=== PATIENT | male | born 1950 | race Caucasian/White ===

== ENCOUNTER 2018-02-10 08:32 | Outpatient (CLI) | payer MEDICARE, OTHER ==
[2018-02-10 09:38] LABS: Estimated GFR-MDRD - POC Greater than 90
--- NOTE | 2018-02-10 12:00 | CT ---
CT ABDOMEN AND PELVIS PERFORMED WITH INTRAVENOUS CONTRAST ENHANCEMENT: HISTORY: The patient has prostate cancer, now with an elevated PSA. COMPARISON: 01/04/2011 FINDINGS: ABDOMEN: The lung bases show some interstitial changes, which appear to be chronic in nature. Some subpleural atelectasis is noted. No pulmonary nodules are identified. There is suggestion of some possible fatty change to the liver. The spleen is somewhat elongated in appearance and measures 13.7 cm in length. The pancreas shows no mass or ductal dilatation. The gal lbladder has been removed. The right and left adrenal glands have a slightly hyperplastic appearance, with a slight nodular appe arance to the left adrenal gland, but this is stable. The right and left kidneys are normal in size. There are hypodensities involving the upper and lower poles of the right kidney, both of which have increased in size, as compared to the prior examination. The upper pole lesion is 17 mm in size, an d the lower pole lesion is 5.5 cm in size, as compared to less than 1 cm and 3.7 cm on the prior exam ; however, both of these have CT Hounsfield unit numbers that are compatible with cysts. There are n o renal calculi or any suspicious solid mass. There is no significant periaortic or aortocaval lymphadenopathy. No mesenteric adenopathy. I do no t appreciate any adenopathy in the portal region or in the gastrohepatic ligament area. PELVIS: The appendix is normal. I do not see any significant pelvic lymphadenopathy. All the nodes are subcentimeter in size. No deep pelvic lymphadenopathy noted. No interval change since the prev ious exam. Small inguinal nodes are present, which are stable. Prostate calcification is noted. Review of the osseous structures show some arthritic changes of the spine and hips. No lytic or jimmie tic bony change. IMPRESSION: 1. Right renal cyst and also a tiny, subcentimeter hyperdensity in the upper pole of the left kidney , probably also a small cyst. 2. No evidence of any significant abdominal or pelvic adenopathy or evidence for metastatic disease. POS: TPC
--- NOTE | 2018-02-10 14:37 | NM ---
WHOLE BODY BONE SCAN: INDICATIONS: Malignant neoplasm of prostate. COMPARISON: Reference made to 11/20/2015. RADIOPHARMACEUTICAL: Technetium 99m MDP 32 millicuries IV. FINDINGS: There is stable mild degenerative activity of the axial and appendicular skeleton. There is no new s cintigraphic focus to indicate osseous metastatic disease. Physiologic excretion of radiotracer is n oted within the kidneys and bladder. IMPRESSION: No scintigraphic evidence of osseous metastatic disease. POS: TPC
[2018-02-10] MEDS ORDERED: Iopamidol 370 76% 100 ML VIAL ONE (16:15)
== END 2018-02-10 08:33 | disposition home or self-care (01) ==
LOC: CT 08:32
PROVIDERS: ATTEND Radiology Radiation Oncology
DX: C61 Malignant neoplasm of prostate (principal); R97.21 Rising PSA following treatment for malignant neoplasm of prostate; N28.1 Cyst of kidney, acquired
CPT/HCPCS: 74177; 78306; 82565; A9503

== ENCOUNTER 2019-09-03 12:54 | Inpatient (IN) | payer MEDICARE, OTHER ==
[2019-09-03] MEDS ORDERED: Ondansetron PF 4 MG/2 ML Vial ONE ×2 (14:00→15:20)
[2019-09-03 14:25] LABS: Hemoglobin 17.9 g/dL (14.0-18.0); Mean Corpuscular HGB CONC 35.7 g/dL (32.0-36.0); Mean Corpuscular Hemoglobin 31.6 pg (27.0-31.0); Mean Corpuscular Volume 88.6 fL (78.0-98.0); Mean Platelet Volume 6.8 fL (7.4-10.4); Platelet Count 328 thou/uL (130-400); RBC Distribution Width 12.5 % (11.5-14.5); Red Blood Cell (RBC) Count 5.65 mill/uL (4.70-6.10); White Blood Cell (WBC) Count 22.1 thou/uL (4.8-10.8)
--- NOTE | 2019-09-03 14:25 | RAD ---
EXAM: Single view of the chest HISTORY: Nausea and headache COMPARISON: 06/26/2010 FINDINGS: Single view of the chest shows a normal sized cardiomediastinal silhouette. There is no francisco dence of consolidation, mass, or pleural effusion. Degenerative changes are seen in the spine. IMPRESSION: No evidence of acute cardiopulmonary disease
[2019-09-03 14:38] LABS: ALT (SGPT) 15 U/L (8-55); AST (SGOT) 14 U/L (5-34); Albumin 4.1 g/dL (3.4-4.8); Alkaline Phosphatase 85 U/L (40-110); Anion Gap 16 mmol/L (10-20); BUN (Urea Nitrogen) 16 mg/dL (8.4-25.7); Bilirubin, Total 0.9 mg/dL (0.2-1.2); Calc. Creatinine Clearance 0 mL/min (70-130); Carbon Dioxide 22 mmol/L (23-31); Chloride 101 mmol/L (98-107); Estimated GFR-MDRD 40; Globulin 2.9 g/dL (2.4-3.5); Glucose 168 mg/dL (80-115); Potassium 3.2 mmol/L (3.5-5.1); Sodium 136 mmol/L (136-145)
[2019-09-03 14:48] LABS: Band 25 % (5-11); Lymphocytes 3 % (21-51); MDiff Complete? YES; Monocytes 5 % (0-10); Neutrophil 59 % (42-75); Platelet Morphology Comment Appears Adequate; Polychromasia SLIGHT = 2-3 cells (100X) (0-2/hpf); Reactive Lymphocytes 8 % (0-10)
[2019-09-03] MEDS ORDERED: Ondansetron ODT 4 MG TAB ONE (15:17)
[2019-09-03] MEDS ORDERED: Vancomycin 1 GM/200 ML BAG ONE (15:17)
[2019-09-03] MEDS ORDERED: Cefepime 2 GM VIAL ONE ×2 (15:17→15:20)
[2019-09-03] MEDS ORDERED: Sodium Chloride 0.9% 100 ML ONE (15:20)
[2019-09-03] MEDS ORDERED: Potassium Chloride 20 MEQ TAB ONE ×2 (15:39→15:42)
[2019-09-03 18:00] LABS: Bacteria/HPF None Seen HPF (None Seen); Bilirubin Negative (Negative); Blood, Urine 2+ (Negative); Clarity Turbid (Clear); Glucose, Urine (Dipstick) Normal (Negative); Leukocyte 250 Leu/uL (Negative); Nitrite Negative (Negative); Protein, Urine (Dipstick) 70 mg/dL (Neg-Trace); Squamous Epithelial 0-3 HPF (0-3); Urobilinogen Normal mg/dL (Less than 2); WBC/HPF 21-50 HPF (0-3)
[2019-09-03 18:31] LABS: Lactic Acid 2.6 mmol/L (0.5-2.2)
[2019-09-03] MEDS ORDERED: cefTRIAXone\\ROCEPHIN 1 GM VIAL ONE ×2 (18:54→20:47)
[2019-09-03] MEDS ORDERED: cefTRIAXone\\ROCEPHIN 2 GM VIAL ONE (19:09)
--- NOTE | 2019-09-03 20:26 | PDOC.HHP ---
Hospitalist HPI - History of Present Illness weakness, chills, sweats since the morning History of Present Illness: Patient is poor historian. H&P based on ED report and patient. 68yo M w/ MHx of prostate cancer (currently on chemo) heart stent on Plavix, hypertension, T2DM, hyperlipidemia, cholecystectomy presents to the ED for weakness. The patient has been feeling weak since the morning, associated with nausea, sweats, and chills so came to the ED on encounter, laying comfortably in bed and has no complaints. denies headache, neck stiffness, chest pain, pleuritic pain, sob, abdominal pain, diarhea, dysuria, burning on urination, urinary frequency, sick contacts or travel ED Course: In the ED, hypotensive, given 3L NS and started on antibiotics. UA showed pyruia with leukocyte esterase. Was admitted to the medical floor for further management Hospitalist ROS - Review of Systems Constitutional: reports: chills, sweats, weakness, malaise. denies: fever Eyes: denies: pain, vision change, eyelid inflammation, redness ENT: denies: nose pain, nose discharge, nose congestion, mouth pain, mouth swelling, throat pain, throat swelling Respiratory: denies: cough, shortness of breath, hemoptysis, SOB with excertion Cardiovascular: denies: chest pain, palpitations, orthopnea, paroxysmal noc. dyspnea, edema Gastrointestinal: reports: nausea, constipation. denies: vomiting, abdominal pain, diarrhea Genitourinary: denies: dysuria, frequency, hematuria Musculoskeletal: reports: shoulder pain. denies: neck pain, arm pain, back pain Neurological: reports: weakness. denies: incoordination, change in speech, confusion Hospitalist History - Past Medical History Source: patient, old records Cardiac: reports: CAD, HTN Heme/Onc: reports: Cancer (prostate) - Past Surgical History Other Surgical History: lung surgery - Family History Family History: reports: diabetes mellitus, hypertension - Social History Smoking Status: Current every day smoker Tobacco Type: cigarettes Alcohol: reports: None Drugs: reports: none Living Situation: With Family Activity level: independent ambulation - Exam General Appearance: NAD, awake alert Eye: PERRL, anicteric sclera Neck: no JVD Heart: RRR, no murmur, no gallops, no rubs Respiratory: CTAB, no wheezes, no rales Respiratory - other findings: diffuse rhonchi Gastrointestinal: soft, non-tender, non-distended, normal bowel sounds Gastrointestinal - other findings: no urethral discharge Extremities: no edema Psychiatric: normal affect, normal behavior, A&O x 3 Hospitalist Results - Labs Result Diagrams: 09/03/19 14:07 09/03/19 14:07 Lab results: WBC 22.1 thou/uL (4.8-10.8) H 09/03/19 14:07 Hgb 17.9 g/dL (14.0-18.0) 09/03/19 14:07 Hct 50.0 % (42.0-52.0) 09/03/19 14:07 MCV 88.6 fL (78.0-98.0) 09/03/19 14:07 Plt Count 328 thou/uL (130-400) 09/03/19 14:07 Band Neuts % (Manual) 25 % (5-11) H 09/03/19 14:07 Sodium 136 mmol/L (136-145) 09/03/19 14:07 Potassium 3.2 mmol/L (3.5-5.1) L 09/03/19 14:07 Chloride 101 mmol/L (98-107) 09/03/19 14:07 Carbon Dioxide 22 mmol/L (23-31) L 09/03/19 14:07 BUN 16 mg/dL (8.4-25.7) 09/03/19 14:07 Creatinine 1.70 mg/dL (0.7-1.3) H 09/03/19 14:07 Glucose 168 mg/dL (80-115) H 09/03/19 14:07 Lactic Acid 2.6 mmol/L (0.5-2.2) H 09/03/19 18:05 Calcium 9.0 mg/dL (7.8-10.44) 09/03/19 14:07 Total Bilirubin 0.9 mg/dL (0.2-1.2) 09/03/19 14:07 AST 14 U/L (5-34) 09/03/19 14:07 ALT 15 U/L (8-55) 09/03/19 14:07 Alkaline Phosphatase 85 U/L (40-110) 09/03/19 14:07 Troponin I 0.019 ng/mL (< 0.028) 09/03/19 14:07 Serum Total Protein 7.0 g/dL (5.8-8.1) 09/03/19 14:07 Albumin 4.1 g/dL (3.4-4.8) 09/03/19 14:07 Urine Ketones Negative mg/dL (Negative) 09/03/19 17:39 Urine Blood 2+ (Negative) A 09/03/19 17:39 Urine Nitrite Negative (Negative) 09/03/19 17:39 Ur Leukocyte Esterase 250 Klever/uL (Negative) A 09/03/19 17:39 Urine RBC 11-20 HPF (0-3) A 09/03/19 17:39 Urine WBC 21-50 HPF (0-3) A 09/03/19 17:39 Ur Squamous Epith Cells 0-3 HPF (0-3) 09/03/19 17:39 Urine Bacteria None Seen HPF (None Seen) 09/03/19 17:39 - Radiology Interpretation Chest x-ray Status: report reviewed by me Additional Comment: no acute cardiopulmonary process Hospitalist H&P A/P - Problem (1) Urinary tract infection Status: Acute (2) Acute tubular necrosis Code(s): N17.0 - ACUTE KIDNEY FAILURE WITH TUBULAR NECROSIS Status: Acute (3) Hypertension Code(s): I10 - ESSENTIAL (PRIMARY) HYPERTENSION Status: Acute (4) Prostate cancer Code(s): C61 - MALIGNANT NEOPLASM OF PROSTATE Status: Acute (5) Type 2 diabetes mellitus Status: Acute (6) Presence of stent in coronary artery in patient with coronary artery disease Code(s): I25.10 - ATHSCL HEART DISEASE OF [place] CORONARY ARTERY W/O ANG PCTRS; Z95.5 - PRESENCE OF CORONARY ANGIOPLASTY IMPLANT AND GRAFT Status: Acute - Plan Plan: #weakness #sepsis #complicated UTI #ATN -qSOFA 2/3 on presentation -active sediment;no symptoms c/w UTI, wbc and rbc, leukoesterase may be due to ATN; however, leuokocytosis with bandemia -also may be related to chemotherapy; medication reconciliation pending -EKG showing occasional PVC -start ceftriaxone -FeNA -IVF #SELAM/CKD -no recent records of renal function -active urine sediment - may be related to chemo -FeNa #T2DM -insulin regimen based on weight #CAD s/p stent -per patient, stent placede about 10 years ago; last seen by special service representative months ago who wanted him to continue use plavix -pending medication reconciliation Disposition/PPx full code. is surrogate GI PPx: not indicated DVT PPx: lovenox
[2019-09-03] MEDS ORDERED: Acetaminophen 325 MG TAB PO PRN ×2 (21:54→22:02)
[2019-09-03] MEDS ORDERED: Ondansetron PF 4 MG/2 ML Vial IVP PRN ×2 (21:54→22:02)
[2019-09-03] MEDS ORDERED: Ondansetron ODT 4 MG TAB SL PRN (21:54)
[2019-09-03 21:58] VITALS: BMI 32.5
[2019-09-03] MEDS ORDERED: Dextrose 50% Abboject 50 ML SYRINGE SLOW IVP PRN (22:02)
[2019-09-03] MEDS ORDERED: Dextrose 5% in Water 1,000 ML IV PRN (22:02)
[2019-09-03] MEDS ORDERED: HYDROcodone/Acetaminophen 5/325 mg Tablet PO PRN (22:02)
[2019-09-03] MEDS ORDERED: HumaLOG 300 UNITS/3 ML VIAL SC PRN (22:02)
[2019-09-03] MEDS ORDERED: Bisacodyl 5 MG TAB PO SCH (22:02)
[2019-09-03] MEDS ORDERED: Ondansetron ODT 4 MG TAB PO PRN (22:02)
[2019-09-03] MEDS ORDERED: Insulin Glargine 10 UNITS in Pre-Filled Syringe 1 EACH SC SCH (22:30)
[2019-09-03] MEDS: Sodium Chloride 0.9% 1,000 ML IV SCH ×2 (23:25→23:57)
[2019-09-04 00:28] LABS: Calc. Creatinine Clearance 87 mL/min (70-130); Estimated GFR-MDRD 58; Sodium 136 mmol/L (136-145)
[2019-09-04 02:22] LABS: Creatinine, Urine 170.41 mg/dL (63-166)
[2019-09-04 06:13] LABS: Eosinophils 3 % (0-10); Hypochromia SLIGHT = 6-15 cells (100X) (0-5/hpf); Lymphocytes 10 % (21-51); MDiff Complete? YES; Mean Corpuscular HGB CONC 36.3 g/dL (32.0-36.0); Mean Corpuscular Hemoglobin 32.2 pg (27.0-31.0); Mean Corpuscular Volume 88.7 fL (78.0-98.0); Mean Platelet Volume 6.9 fL (7.4-10.4); Monocytes 5 % (0-10); Neutrophil 82 % (42-75); Platelet Count 243 thou/uL (130-400); Platelet Morphology Comment Appears Adequate; RBC Distribution Width 12.2 % (11.5-14.5); Red Blood Cell (RBC) Count 4.04 mill/uL (4.70-6.10); White Blood Cell (WBC) Count 10.6 thou/uL (4.8-10.8)
[2019-09-04 06:18] LABS: Anion Gap 9 mmol/L (10-20); BUN (Urea Nitrogen) 13 mg/dL (8.4-25.7); Calc. Creatinine Clearance 114 mL/min (70-130); Calcium 7.9 mg/dL (7.8-10.44); Carbon Dioxide 26 mmol/L (23-31); Chloride 106 mmol/L (98-107); Estimated GFR-MDRD 80; Glucose 111 mg/dL (80-115); Potassium 3.2 mmol/L (3.5-5.1); Sodium 138 mmol/L (136-145)
[2019-09-04] MEDS: Sodium Chloride 0.9% 1,000 ML IV SCH ×3 (07:57→19:17)
[2019-09-04] MEDS: Enoxaparin Sodium 40 MG/0.4 ML SYRINGE SC SCH (09:02)
[2019-09-04] MEDS: Senokot S 8.6-50 MG TAB PO SCH ×2 (09:02→20:55)
[2019-09-04] MEDS: Potassium Chloride 20 MEQ TAB PO SCH ×2 (12:14→16:17)
--- NOTE | 2019-09-04 15:22 | PDOC.HOSPP ---
- Subjective Encounter Date: 09/04/19 Encounter Time: 09:00 Subjective: no overnight events. this morning feeling better and more energetic. has no complaints and denies chest pain, palpitations, dyspnea - Objective Vital Signs & Weight: Vital Signs (12 hours) Temp Pulse Resp BP BP Pulse Ox 09/04/19 12:16 97.8 F 53 L 15 124/61 93 L 09/04/19 09:05 58 L 18 93 L 09/04/19 09:00 93 L 09/04/19 07:45 98.7 F 58 L 18 106/67 91 L 09/04/19 04:00 98.7 F 65 20 108/68 95 Weight Weight 240 lb I&O: 09/03/19 09/04/19 09/05/19 06:59 06:59 06:59 Intake Total 1450 Output Total 800 Balance 1450 -800 Result Diagrams: 09/04/19 05:18 09/04/19 05:18 Additional Labs: Accuchecks 09/04/19 09/04/19 11:46 04:42 POC Glucose 142 H 129 H Hospitalist ROS - Review of Systems Constitutional: denies: fever, chills, sweats, weakness, malaise, other Respiratory: denies: cough, dry, shortness of breath, hemoptysis, SOB with excertion, pleuritic pain, sputum, wheezing, other Cardiovascular: denies: chest pain, palpitations, orthopnea, paroxysmal noc. dyspnea, edema, light headedness, other Gastrointestinal: denies: nausea, vomiting, abdominal pain, diarrhea, constipation, melena, hematochezia, other Genitourinary: denies: dysuria, frequency, incontinence, hematuria, retention, other - Medication Medications: Active Medications Generic Name Dose Route Start Last Admin Trade Name Freq PRN Reason Stop Dose Admin Enoxaparin Sodium 40 mg 09/04/19 09:00 09/04/19 09:02 Lovenox SC 40 mg 0900 DESTINY Administration Sodium Chloride 1,000 mls @ 100 mls/hr 09/03/19 22:02 09/04/19 09:03 Normal Saline 0.9% IV 1,000 mls .Q10H DESTINY Administration Potassium Chloride 40 meq 09/04/19 11:45 09/04/19 12:14 K-Dur PO 09/04/19 15:46 40 meq Q4H DESTINY Administration Senna/Docusate Sodium 2 tab 09/04/19 09:00 09/04/19 09:02 Senokot S PO 2 tab BID DESTINY Administration - Exam General Appearance: NAD, awake alert Neck: no JVD Heart: no murmur, no gallops, no rubs Heart - other findings: regular rhythm, bradycardic Gastrointestinal: soft, non-tender, non-distended Extremities: no edema Psychiatric: normal affect, normal behavior, A&O x 3 Hosp A/P (1) Urinary tract infection Status: Acute (2) Acute tubular necrosis Code(s): N17.0 - ACUTE KIDNEY FAILURE WITH TUBULAR NECROSIS Status: Acute (3) Hypertension Code(s): I10 - ESSENTIAL (PRIMARY) HYPERTENSION Status: Acute (4) Prostate cancer Code(s): C61 - MALIGNANT NEOPLASM OF PROSTATE Status: Acute (5) Type 2 diabetes mellitus Status: Acute (6) Presence of stent in coronary artery in patient with coronary artery disease Code(s): I25.10 - ATHSCL HEART DISEASE OF [place] CORONARY ARTERY W/O ANG PCTRS; Z95.5 - PRESENCE OF CORONARY ANGIOPLASTY IMPLANT AND GRAFT Status: Acute - Plan #UTI continue ABx pending culture #SELAM resolved #bradycardia #hypotensive on presentation -uncertain hypotension related to sepsis -EKG, Trop Full code. is surrogate DVT ppx lovenox GI ppx no Ix
[2019-09-04] MEDS ORDERED: Bisacodyl 5 MG TAB PO SCH (15:30)
[2019-09-04] MEDS ORDERED: Clopidogrel Bisulfate 75 MG TAB PO SCH (15:30)
[2019-09-04] MEDS ORDERED: cefTRIAXone\\ROCEPHIN 1 GM in Sodium Chloride 0.9% 100 ML IVPB SCH (18:00)
[2019-09-04] MEDS: Insulin Glargine 10 UNITS in Pre-Filled Syringe 1 EACH SC SCH ×2 (20:55→21:01)
[2019-09-05] MEDS: Sodium Chloride 0.9% 1,000 ML IV SCH ×3 (05:56→12:53)
[2019-09-05 06:58] LABS: #Eosinphils 0.7 thou/uL (0.0-0.7); #Lymphocytes 1.7 thou/uL (1.20-3.40); #Monocytes 0.6 thou/uL (0.11-0.59); #Neutrophils 5.6 thou/uL (1.40-6.50); %Basophils 0.6 % (0.0-1.0); %Eosinophils 7.6 % (0.0-10.0); %Lymphocytes 19.4 % (21.0-51.0); %Monocytes 6.5 % (0.0-10.0); %Neutrophils 65.9 % (42.0-75.0); Hemoglobin 12.3 g/dL (14.0-18.0); Mean Corpuscular HGB CONC 35.4 g/dL (32.0-36.0); Mean Corpuscular Hemoglobin 31.7 pg (27.0-31.0); Mean Corpuscular Volume 89.5 fL (78.0-98.0); Platelet Count 217 thou/uL (130-400); RBC Distribution Width 12.4 % (11.5-14.5); Red Blood Cell (RBC) Count 3.89 mill/uL (4.70-6.10); White Blood Cell (WBC) Count 8.6 thou/uL (4.8-10.8)
[2019-09-05 07:19] LABS: Potassium 3.7 mmol/L (3.5-5.1)
[2019-09-05] MEDS ORDERED: Bisacodyl 5 MG TAB PO SCH (09:00)
[2019-09-05] MEDS ORDERED: Bicalutamide 50 MG TAB PO SCH (09:00)
[2019-09-05] MEDS ORDERED: Clopidogrel Bisulfate 75 MG TAB PO SCH (09:00)
[2019-09-05] MEDS: Enoxaparin Sodium 40 MG/0.4 ML SYRINGE SC SCH (09:06)
[2019-09-05] MEDS: Senokot S 8.6-50 MG TAB PO SCH (09:06)
--- NOTE | 2019-09-05 13:25 | PDOC.HOSPP ---
- Subjective Encounter Date: 09/05/19 Encounter Time: 08:00 Subjective: Patient presented with hypotension, thought to be due to UTI however no symptoms and UCx NTD. During inpatient stay, converted from sinus to asymptomatic junctional rhythm. EP consulted. This morning, feels well and has no complaints. Denies fatigue, chest pain, palpitations, dyspnea - Objective Vital Signs & Weight: Vital Signs (12 hours) Temp Pulse Resp BP BP Pulse Ox 09/05/19 11:30 98.4 F 50 L 16 127/67 93 L 09/05/19 07:37 98.1 F 51 L 19 149/72 H 94 L 09/05/19 03:43 98.3 F 54 L 18 140/73 94 L Weight Weight 240 lb I&O: 09/04/19 09/05/19 09/06/19 06:59 06:59 06:59 Intake Total 1450 3920 Output Total 2150 Balance 1450 1770 Result Diagrams: 09/05/19 06:30 09/05/19 06:30 Additional Labs: Accuchecks 09/05/19 09/04/19 09/04/19 11:42 20:06 16:37 POC Glucose 187 H 155 H 113 H Hospitalist ROS - Review of Systems Constitutional: denies: fever, chills, sweats, weakness, malaise, other Respiratory: denies: cough, dry, shortness of breath, hemoptysis, SOB with excertion, pleuritic pain, sputum, wheezing, other Cardiovascular: denies: chest pain, palpitations, orthopnea, paroxysmal noc. dyspnea, edema, light headedness, other Gastrointestinal: denies: nausea, vomiting, abdominal pain, diarrhea, constipation, melena, hematochezia, other Genitourinary: denies: dysuria, frequency, incontinence, hematuria, retention, other - Medication Medications: Active Medications Generic Name Dose Route Start Last Admin Trade Name Freq PRN Reason Stop Dose Admin Bicalutamide 50 mg 09/05/19 09:00 09/05/19 09:06 Casodex PO 50 mg DAILY DESTINY Administration Bisacodyl 10 mg 09/05/19 09:00 09/05/19 09:06 Dulcolax PO 10 mg DAILY DESTINY Administration Clopidogrel Bisulfate 75 mg 09/05/19 09:00 09/05/19 09:06 Plavix PO 75 mg DAILY DESTINY Administration Enoxaparin Sodium 40 mg 09/04/19 09:00 09/05/19 09:06 Lovenox SC 40 mg 0900 DESTINY Administration Ceftriaxone Sodium 1 gm/ 100 mls @ 200 mls/hr 09/04/19 18:00 09/04/19 17:35 Sodium Chloride IVPB 100 mls 1800 DESTINY Administration Insulin Glargine 10 units/ 0.1 mls @ 0 mls/hr 09/04/19 21:00 09/04/19 21:01 Miscellaneous Medication SC Not Given HS DESTINY Sodium Chloride 1,000 mls @ 100 mls/hr 09/03/19 22:02 09/05/19 12:53 Normal Saline 0.9% IV Not Given .Q10H DESTINY Insulin Human Lispro 0 units 09/03/19 22:02 09/05/19 12:16 Humalog SC 2 unit .MILD SLIDING SCALE PRN Administration Mild Correctional Scale Ondansetron HCl 4 mg 09/03/19 22:02 09/05/19 09:05 Zofran Odt PO 4 mg Q6H PRN Administration Nausea/Vomiting Senna/Docusate Sodium 2 tab 09/04/19 09:00 09/05/19 09:06 Senokot S PO 2 tab BID DESTINY Administration - Exam General Appearance: NAD, awake alert Neck: no JVD Heart: no murmur, no gallops, no rubs Heart - other findings: regular rhythm, bradycardic Respiratory: CTAB, no wheezes, no rales, no ronchi Gastrointestinal: soft, non-tender, non-distended Extremities: no edema Psychiatric: normal affect, normal behavior, A&O x 3 Hosp A/P (1) Urinary tract infection Status: Acute (2) Acute tubular necrosis Code(s): N17.0 - ACUTE KIDNEY FAILURE WITH TUBULAR NECROSIS Status: Acute (3) Hypertension Code(s): I10 - ESSENTIAL (PRIMARY) HYPERTENSION Status: Acute (4) Prostate cancer Code(s): C61 - MALIGNANT NEOPLASM OF PROSTATE Status: Acute (5) Type 2 diabetes mellitus Status: Acute (6) Presence of stent in coronary artery in patient with coronary artery disease Code(s): I25.10 - ATHSCL HEART DISEASE OF [place] CORONARY ARTERY W/O ANG PCTRS; Z95.5 - PRESENCE OF CORONARY ANGIOPLASTY IMPLANT AND GRAFT Status: Acute - Plan #junctional rhythm #CAD s/p stent placement -sinus on presentation; as inpatient, became bradycardic, junctional rhythm on EKG -on androgen deprivation therapy, which cause qt prolongation and CAD -repeat EKG, troponin -EP consulted -continue holding coreg #complicated UTI UCx NTD continue ABx pending culture finalization #SELAM resolved Full code. is surrogate DVT ppx lovenox GI ppx no Ix
[2019-09-05 17:15] VITALS: BP 150/74; TEMP 98.6
[2019-09-05 17:34] LABS: Troponin I 0.012 ng/mL (< 0.028)
--- NOTE | 2019-09-05 19:20 | PQF ---
DATE: 09-05-19 ATTN: DR. FAITH STRONG Please exercise your independent, professional judgment in responding to the clarification form. Clinical indicators are provided on the bottom of this form for your review Please check appropriate box(s) to clarify if the following diagnosis has been ruled in or ruled out: SEPSIS [ ] Ruled in diagnosis [ ] Continue to treat [ ] Resolved [ x ] Ruled out diagnosis [ ] Other diagnosis [ ] Unable to determine In addition, please specify: Present on Admission (POA): [ ] Yes [ x ] No [ ] Unable to determine For continuity of documentation, please document condition throughout progress notes and discharge summary. Thank You. CLINICAL INDICATORS - SIGNS / SYMPTOMS / LABS / RESULTS AND LOCATION IN MR: ER DX: 09-03-19: SEPSIS , UTI H&P 09-03-19: WEAKNESS, SEPSIS, COMPLICATED UTI, ATN, LEUKOCYTOSIS WITH BANDEMIA, SELAM/CKD, DM2 PN DR. STRONG 09-04-19: UNCERTAIN HYPOTENSION RELATED TO SEPSIS WBC: 09-03-19: 22.1 BANDS: 09-03-19: 25% LACTIC ACID: 09-03-19: 2.2, 2.6 RISK FACTORS / RESULTS AND LOCATION IN MR: H&P 09-03-19: WEAKNESS, SEPSIS, COMPLICATED UTI, ATN, LEUKOCYTOSIS WITH BANDEMIA, SELAM/CKD, DM2 TREATMENTS / RESULTS AND LOCATION IN MR: ER NOTES: 09-03-19: CEFTRIAXONE IV, NS IVF X 3L, VANCOMYCIN IV, CEFEPIME IV (This form is maintained as a part of the permanent medical record) 2014 [employer]. All Rights Reserved [email or web address]
[2019-09-05] MEDS ORDERED: Atorvastatin Calcium 20 MG TAB PO SCH ×2 (21:00)
--- NOTE | 2019-09-06 01:04 | DIS ---
DATE OF ADMISSION: 09/03/2019 DATE OF DISCHARGE: 09/05/2019 HOSPITAL COURSE: Mr. Barbosa is a 68-year-old male with medical history of prostate cancer (currently on androgen deprivation therapy), coronary artery disease status post stent placement, on Plavix, hypertension, type 2 diabetes, and cholecystectomy, who presented to the ED for weakness. The patient was initially diagnosed with urinary tract infection even though he did not exhibit signs consistent with an infection due to a positive urinalysis, however, after culture was finalized and was negative, antibiotics were discontinued. During his inpatient stay, he converted from sinus rhythm to a junctional rhythm. Electrophysiology was consulted, and the patient received heart monitor. Followup appointment was scheduled with the patient's leadite man Dr. Pace. On the day of discharge, the patient was hemodynamically stable and had no complaints. PHYSICAL EXAMINATION: VITAL SIGNS: Blood pressure 127/67, temperature 98.4, pulse 50, respiratory rate 16, oxygen saturation 93% on room air. GENERAL: Lying comfortably in bed. Alert. HEENT: Normocephalic, atraumatic. No JVD. CARDIAC: Regular rhythm, bradycardic. No murmur, rubs, or gallops. LUNGS: Clear to auscultation bilaterally. No wheezing, rales, or rhonchi. EXTREMITIES: No edema. MEDICATION LIST: New medications: No new medications. Modified medications: No modified medications. Continued medications: 1. Atorvastatin 20 daily. 2. Bicalutamide 50 mg daily. 3. Amlodipine 10 daily. 4. Coreg 6.25 b.i.d. 5. Clopidogrel 75 daily. 6. Prinzide 20-25 daily. 7. Metformin 500 b.i.d. Job ID: [id number]
--- NOTE | 2019-09-06 06:43 | CON ---
DATE OF CONSULTATION: 09/05/2019 HISTORY OF PRESENT ILLNESS: I am seeing Mr. 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 His problems are; 1. Episode of junctional bradycardia in the setting of nausea. 2. Hypotension with associated near syncopal spell in the setting of severe UTI. 3. History of coronary artery disease status post stenting by Dr. Pace about 10 years ago, on Plavix. 4. [id number] kidney disease with current BUN 13, creatinine 0.94, initially 1.7. 5. History of prostate cancer. 6. Type 2 diabetes. ALLERGIES: NONE NOTED. MEDICATIONS: At home included; 1. Casodex. 2. Glucophage. 3. Prinzide. 4. Coreg 6.25 mg twice a day. 5. Lipitor. 6. Norvasc. 7. Clopidogrel. SUBJECTIVE: Mr. Barbosa was admitted on the with symptoms of dizziness, lightheadedness, near syncope, weakness, is found to have severe nausea and vomiting, but denies dysuria. His lowest blood pressure was 90/55. EKG is performed in the ER revealing bradycardia at 51 beats per minute. There appears to be junctional rhythm competing with his sinus mechanism in the setting of nausea. Subsequent EKG on the reveals sinus bradycardia at 45 beats per minute. I was subsequently consulted to evaluate the patient. Currently, the patient denies dizziness, loss of consciousness. No stroke-like symptoms. No neurological deficits. No fever, chills, cough. No PND or orthopnea. He has been receiving antibiotics and he has no burning urination and his nausea is resolved. Respiratory system otherwise unremarkable. PAST MEDICAL HISTORY: As above. The patient has a history of sleep apnea on CPAP. Currently, he is not wearing his CPAP in the hospital. SOCIAL HISTORY: The patient is a daily smoker. Denies EtOH or drug abuse. Lives with family. FAMILY HISTORY: Significant for diabetes and hypertension running in the family. PHYSICAL EXAMINATION: VITAL SIGNS: Blood pressure currently is 127/67, heart rate 50, respirations 16, and temperature 98.4 degrees Fahrenheit. GENERAL: Alert and oriented man, in no apparent distress. NECK: Supple. Jugular veins not distended. CHEST: Coarse without crackles. HEART: Sounds are regular to rate and rhythm. No murmur or gallop. ABDOMEN: Benign. Bowel sounds positive. EXTREMITIES: Lower extremities without edema, clubbing, or cyanosis. DATABASE: EKGs as described above. Initial EKG from September 03, 2019, reveals sinus rhythm, rate of 78 beats per minute. Occasional PVCs are noted. Subsequent EKG from September 04, 2019, reveals sinus bradycardia with junctional beat competing with the sinus mechanism in the setting of nausea. On the , reveals sinus rhythm, rate of 45 beats per minute, no significant changes. LABORATORY DATA: Sodium 138, potassium 3.2, BUN is 13, creatinine was 0.94 on the , calcium 7.9, troponin 0.01. White cell count is 8.6, hemoglobin is 12.3, platelet count is 217. Blood cultures and urine cultures are negative x2 days. ASSESSMENT AND PLAN: Mr. Barbosa is a 68-year-old man with prior history of prostate cancer, sleep apnea, remote history of stent placement. Dr. Pace still follows the patient. He is presented with UTI and nausea, but now he is doing much better on antibiotics. Cultures so far negative. He was noted to have bradyarrhythmia at night in the 40s while asleep, but he does have a history of sleep apnea and currently not wearing his sleep mask. On the other hand, he also has asymptomatic bradycardia in the 45 beats per minute range documented by an EKG today. He had an EKG with a junctional rhythm, completely sinus rhythm about 51 beats per minute. This gentleman has clearly slower heartbeats and he is not currently on any AV fred or sinus node blocking agents. On the other hand, he has had significant nausea and vomiting like symptoms possibly since his urinary sepsis, which could worsen his bradycardia. Now, his mild bradycardia persists but remains asymptomatic currently. He had borderline blood pressures on presentation, which have normalized. At this point, I do not clearly see indication for pacemaker. Hence, likely cause of his mild bradycardia. I am more suspicious about the hypotension being the main factor for his dizzy spell. On the other hand, he could benefit from home monitoring and likely this could be arranged with Dr. Pace, his usual safety equipment testing specialist's office. Should he have symptomatic bradycardia on the monitor, he may be considered for pacemaker as an outpatient. We will discuss with Dr. Zafar and Dr. Pace. Thank you again for allowing me to participate in the care of this patient. Job ID: [id number]
--- NOTE | 2019-09-06 17:40 | EKG ---
Test Reason : Blood Pressure : / mmHG Vent. Rate : 051 BPM Atrial Rate : 051 BPM P-R Int : 000 ms QRS Dur : 092 ms QT Int : 426 ms P-R-T Axes : 000 036 012 degrees QTc Int : 392 ms Junctional rhythm Abnormal ECG When compared with ECG of 03-JAN-2011 22:41, Junctional rhythm has replaced Sinus rhythm Confirmed by DR. Ever KAHN ([id number]) on 09/06/2019 5:40:09 PM Referred By: TAE Confirmed By:DR. Ever KAHN
--- NOTE | 2019-09-07 08:32 | EKG ---
Test Reason : Blood Pressure : / mmHG Vent. Rate : 045 BPM Atrial Rate : 045 BPM P-R Int : 176 ms QRS Dur : 094 ms QT Int : 452 ms P-R-T Axes : 067 047 019 degrees QTc Int : 390 ms Marked sinus bradycardia with sinus arrhythmia Abnormal ECG When compared with ECG of 04-SEP-2019 16:09, (Unconfirmed) Sinus rhythm has replaced Junctional rhythm Confirmed by DR. Ever KAHN ([id number]) on 09/07/2019 8:31:54 AM Referred By: TAE Confirmed By:DR. Ever KAHN
== END 2019-09-05 17:20 | disposition home or self-care (01) | DRG 689 ==
LOC: ERS 12:54 → T4-A 19:15
PROVIDERS: ADMIT Internal Medicine; ATTEND Internal Medicine
DX: N39.0 Urinary tract infection, site not specified (principal); N17.0 Acute kidney failure with tubular necrosis; E78.5 Hyperlipidemia, unspecified; C61 Malignant neoplasm of prostate; F17.210 Nicotine dependence, cigarettes, uncomplicated; E11.22 Type 2 diabetes mellitus with diabetic chronic kidney disease; I12.9 Hypertensive chronic kidney disease with stage 1 through stage 4 chronic kidney disease, or unspecified chronic kidney disease; N18.9 Chronic kidney disease, unspecified; I25.10 Atherosclerotic heart disease of native coronary artery without angina pectoris; Z90.49 Acquired absence of other specified parts of digestive tract; Z79.01 Long term (current) use of anticoagulants; Z95.5 Presence of coronary angioplasty implant and graft; Z79.84 Long term (current) use of oral hypoglycemic drugs; Z79.899 Other long term (current) drug therapy
CPT/HCPCS: 36415; 36416; 71045; 80053; 81003; 81015; 82570; 83605; 84132; 84300; 84484; 85007; 85025; 85027; 87040; 87086; 93005; 93010; J0692; J0696; J1650; J1815; J2405; J3370; J3490; Q0162

== ENCOUNTER 2020-01-02 12:14 | Outpatient (CLI) | payer MEDICARE, OTHER ==
--- NOTE | 2020-01-02 12:36 | RAD ---
EXAM: Chest PA and lateral: HISTORY: Dyspnea COMPARISON: 09/03/2019 FINDINGS: Heart: Normal cardiac silhouette Aorta: Unremarkable Pulmonary vessels: Normal Costophrenic angles: Costophrenic angles are clear. Lungs: No consolidation or masses. Scattered reticulonodular opacities. Pneumothorax: No pneumothorax Osseous structures: Remote posterior left sixth rib injury. IMPRESSION: Correlate for edema or infiltrate. There are scattered reticulonodular opacities.
== END 2020-01-02 12:15 | disposition home or self-care (01) ==
LOC: BICRAD 12:14
PROVIDERS: ATTEND Internal Medicine Critical Care Medicine
DX: R06.00 Dyspnea, unspecified (principal); R91.8 Other nonspecific abnormal finding of lung field
CPT/HCPCS: 71046

== ENCOUNTER 2020-09-08 14:26 | Outpatient (CLI) | payer MEDICARE, OTHER ==
[2020-09-08 17:33] LABS: Anion Gap 19 mmol/L (10-20); BUN (Urea Nitrogen) 12 mg/dL (8.4-25.7); Calc. Creatinine Clearance 0 mL/min (70-130); Calcium 9.1 mg/dL (7.8-10.44); Carbon Dioxide 23 mmol/L (23-31); Chloride 99 mmol/L (98-107); Glucose 239 mg/dL (80-115); Potassium 4.4 mmol/L (3.5-5.1); Sodium 137 mmol/L (136-145)
[2020-09-08 17:53] LABS: Prothrombin Time 10.9 sec (9.5-12.1)
[2020-09-08 17:54] LABS: Hemoglobin 13.3 g/dL (13.5-17.5); Mean Corpuscular HGB CONC 34.2 g/dL (32.0-36.0); Mean Corpuscular Hemoglobin 30.7 pg (27.0-33.0); Mean Corpuscular Volume 89.8 fl (81.2-95.1); Mean Platelet Volume 9.8 fl (7.4-10.4); Platelet Count 267 10x3/uL (150-450); Red Blood Cell (RBC) Count 4.33 10x6/uL (4.32-5.72); White Blood Cell (WBC) Count 9.5 10x3/uL (3.5-10.5)
[2020-09-09 16:59] LABS: SARS-CoV-2 PCR by NAA Not Detected (NotDetected)
== END 2020-09-08 14:27 | disposition home or self-care (01) ==
LOC: LABBT 14:26
PROVIDERS: ATTEND Internal Medicine Cardiovascular Disease
DX: Z01.812 Encounter for preprocedural laboratory examination (principal); I47.2 Ventricular tachycardia; I47.1 Supraventricular tachycardia; R55 Syncope and collapse; Z20.822 Contact with and (suspected) exposure to COVID-19
CPT/HCPCS: 80048; 85027; 85610; U0003; U0005

== ENCOUNTER 2020-09-11 05:34 | Observation (INO) | payer MEDICARE, OTHER ==
[2020-09-10 10:17] VITALS: BMI 31.8
[2020-09-11] MEDS ORDERED: Lidocaine 1% (PF) 30 ML VIAL ONE ×2 (06:42→08:56)
[2020-09-11] MEDS ORDERED: Gentamicin 80 MG/2 ML VIAL ONE (06:42)
[2020-09-11] MEDS ORDERED: CEFAZOLIN 1 GM VIAL ONE (06:42)
[2020-09-11] MEDS ORDERED: Heparin 10,000 UNITS/ 10 ML VIAL ONE (06:43)
[2020-09-11] MEDS ORDERED: Fentanyl 100 MCG/2 ML VIAL ONE (07:09)
[2020-09-11] MEDS ORDERED: Propofol 1,000 MG/100 ML VIAL IV ONE ×2 (07:09→08:55)
[2020-09-11] MEDS ORDERED: Isoproterenol 0.2 MG/1 ML AMP ONE (08:10)
[2020-09-11] MEDS ORDERED: Vancomycin 1.5 GRAM/300 ML BAG 1.5 GM in Premix Bag 1 BAG IVPB SCH (08:45)
[2020-09-11] MEDS ORDERED: HYDROcodone/Acetaminophen 5/325 mg Tablet PO PRN ×2 (13:45)
[2020-09-11] MEDS ORDERED: Loratadine 10 MG TAB PO SCH (13:45)
[2020-09-11] MEDS: metFORMIN 500 MG TAB PO SCH (18:07)
[2020-09-11] MEDS: Amlodipine 5 MG TAB PO SCH (20:52)
[2020-09-11] MEDS ORDERED: Bicalutamide 50 MG TAB PO SCH (21:00)
[2020-09-11] MEDS ORDERED: Fish Oil 1,000 MG CAP PO SCH (21:00)
[2020-09-11] MEDS ORDERED: Atorvastatin Calcium 40 MG TAB PO SCH (21:00)
[2020-09-11] MEDS ORDERED: Tamsulosin HCl 0.4 MG CAP PO SCH (21:00)
[2020-09-11] MEDS ORDERED: Escitalopram Oxalate 10 mg Tablet PO SCH (21:00)
[2020-09-12 08:10] VITALS: BP 147/72; TEMP 98.4
[2020-09-12] MEDS ORDERED: Lisinopril/Hydrochlorothiazide 20 mg/12.5 mg Tablet PO SCH (09:00)
[2020-09-12] MEDS ORDERED: Ergocalciferol 1.25 MG(50,000 UNITS) CAP PO SCH (09:00)
[2020-09-12] MEDS ORDERED: Aspirin 81 mg Enteric Coated Tablet PO SCH (09:00)
[2020-09-12] MEDS: metFORMIN 500 MG TAB PO SCH (10:00)
[2020-09-12] MEDS: Amlodipine 5 MG TAB PO SCH (10:01)
== END 2020-09-12 12:33 | disposition home or self-care (01) ==
LOC: CCL 05:34 → 2SW 12:37
PROVIDERS: ADMIT Internal Medicine Cardiovascular Disease; ATTEND Internal Medicine Cardiovascular Disease
PROC: 4A023FZ Measurement of Cardiac Rhythm, Percutaneous Approach (ICD-10-PCS; principal; 2020-09-11)
PROC: 4A0234Z Measurement of Cardiac Electrical Activity, Percutaneous Approach (ICD-10-PCS; 2020-09-11)
PROC: 0JH606Z Insertion of Pacemaker, Dual Chamber into Chest Subcutaneous Tissue and Fascia, Open Approach (ICD-10-PCS; 2020-09-11)
PROC: 02H63JZ Insertion of Pacemaker Lead into Right Atrium, Percutaneous Approach (ICD-10-PCS; 2020-09-11)
PROC: 02HK3JZ Insertion of Pacemaker Lead into Right Ventricle, Percutaneous Approach (ICD-10-PCS; 2020-09-11)
DX: I49.5 Sick sinus syndrome (principal); R00.1 Bradycardia, unspecified; R55 Syncope and collapse; I47.1 Supraventricular tachycardia; I47.2 Ventricular tachycardia; I49.8 Other specified cardiac arrhythmias; I25.10 Atherosclerotic heart disease of native coronary artery without angina pectoris; I10 Essential (primary) hypertension; E78.5 Hyperlipidemia, unspecified; E11.9 Type 2 diabetes mellitus without complications; G47.33 Obstructive sleep apnea (adult) (pediatric); I45.10 Unspecified right bundle-branch block; Z85.46 Personal history of malignant neoplasm of prostate; Z87.891 Personal history of nicotine dependence; Z79.02 Long term (current) use of antithrombotics/antiplatelets; Z79.82 Long term (current) use of aspirin; Z79.84 Long term (current) use of oral hypoglycemic drugs; Z79.899 Other long term (current) drug therapy; Z95.5 Presence of coronary angioplasty implant and graft
CPT/HCPCS: 33208; 71045; 76942; 82962; 93005 ×2; 93613; 93621; 93623; C1730; C1785; C1898 ×2; 36416; 93010; G0378; J0690; J1580; J1644; J2001; J2704; J3010; J3370

== ENCOUNTER 2021-07-06 09:12 | Outpatient (CLI) | payer MEDICARE | END 2021-07-06 09:13 | disposition home or self-care (01) | LOC: BICCT 09:12 | PROVIDERS: ATTEND Internal Medicine Cardiovascular Disease | DX: I65.22 Occlusion and stenosis of left carotid artery (principal) | CPT/HCPCS: 70498; 82565 ==

== ENCOUNTER 2021-11-10 20:10 | Emergency (ER) | payer MEDICARE, OTHER ==
[2021-11-10] MEDS ORDERED: Ondansetron PF 4 MG/2 ML Vial ONE (20:34)
[2021-11-10 21:50] LABS: #Basophils 0.1 thou/uL (0.0-0.2); #Eosinphils 0.3 thou/uL (0.0-0.7); #Lymphocytes 0.6 thou/uL (1.20-3.40); #Monocytes 0.7 thou/uL (0.11-0.59); #Neutrophils 7.7 thou/uL (1.40-6.50); %Basophils 0.5 % (0.0-1.0); %Eosinophils 3.5 % (0.0-10.0); %Lymphocytes 6.3 % (21.0-51.0); %Monocytes 7.8 % (0.0-10.0); %Neutrophils 81.9 % (42.0-75.0); Hemoglobin 12.8 g/dL (14.0-18.0); Mean Corpuscular Hemoglobin 31.3 pg (27.0-31.0); Mean Corpuscular Volume 89.5 fL (78.0-98.0); Mean Platelet Volume 6.5 fL (7.4-10.4); Platelet Count 219 thou/uL (130-400); RBC Distribution Width 12.1 % (11.5-14.5); Red Blood Cell (RBC) Count 4.07 mill/uL (4.70-6.10); White Blood Cell (WBC) Count 9.5 thou/uL (4.8-10.8)
[2021-11-10 22:11] LABS: ALT (SGPT) 11 U/L (8-55); AST (SGOT) 9 U/L (5-34); Albumin 3.9 g/dL (3.4-4.8); Alkaline Phosphatase 100 U/L (40-110); Anion Gap 15 mmol/L (10-20); BUN (Urea Nitrogen) 10 mg/dL (8.4-25.7); Calc. Creatinine Clearance 0 mL/min (70-130); Calcium 8.3 mg/dL (7.8-10.44); Carbon Dioxide 24 mmol/L (23-31); Chloride 102 mmol/L (98-107); Estimated GFR 80; Globulin 2.7 g/dL (2.4-3.5); Glucose 171 mg/dL (83-110); Lipase 56 U/L (8-78); Potassium 4.1 mmol/L (3.5-5.1); Protein, Total 6.6 g/dL (5.8-8.1); Sodium 137 mmol/L (136-145)
== END 2021-11-10 23:15 | disposition home or self-care (01) ==
LOC: ERS 20:10
DX: R11.2 Nausea with vomiting, unspecified (principal); R05.9 Cough, unspecified; Z20.822 Contact with and (suspected) exposure to COVID-19; E11.9 Type 2 diabetes mellitus without complications; E78.5 Hyperlipidemia, unspecified; I10 Essential (primary) hypertension; F17.210 Nicotine dependence, cigarettes, uncomplicated; Z79.84 Long term (current) use of oral hypoglycemic drugs; Z79.899 Other long term (current) drug therapy
CPT/HCPCS: 71045; 80053; 83690; 83880; 84484; 85025; 93005; 96361; 96374; 99284; U0003; U0005; 36415; J2405

== ENCOUNTER 2023-08-05 16:42 | Emergency (ER) | payer OTHER ==
[2023-08-05 17:10] LABS: #Basophils 0.09 10x3/uL (0.0-0.2); %Basophils 0.9 % (0.0-1.0); %Lymphocytes 13.2 % (21.0-51.0); %Monocytes 6.8 % (0.0-10.0); %Neutrophils 71.2 % (42.0-75.0); Hematocrit 37.3 % (42.0-52.0); Hemoglobin 13.3 g/dL (14.0-18.0); Mean Corpuscular HGB CONC 35.7 g/dL (32.0-36.0); Mean Corpuscular Hemoglobin 31.1 pg (27.0-31.0); Mean Corpuscular Volume 87.4 fL (78.0-98.0); Platelet Count 247 10x3/uL (130-400); RBC Distribution Width 13.9 % (11.5-14.5); Red Blood Cell (RBC) Count 4.27 mill/uL (4.70-6.10)
[2023-08-05 17:23] LABS: ALT (SGPT) 10 U/L (8-55); AST (SGOT) 11 U/L (5-34); Albumin 3.7 g/dL (3.4-4.8); Alkaline Phosphatase 91 U/L (40-110); Anion Gap 16 mmol/L (10-20); BUN (Urea Nitrogen) 18 mg/dL (8.4-25.7); Bilirubin, Total 0.8 mg/dL (0.2-1.2); Calc. Creatinine Clearance 0 mL/min (70-130); Calcium 9.7 mg/dL (7.8-10.44); Carbon Dioxide 22 mmol/L (23-31); Chloride 103 mmol/L (98-107); Estimated GFR 47; Globulin 3.5 g/dL (2.4-3.5); Glucose 195 mg/dL (83-110); Protein, Total 7.2 g/dL (5.8-8.1); Sodium 137 mmol/L (136-145)
[2023-08-05 17:24] LABS: Prothrombin Time 13.3 sec (12.0-14.7)
[2023-08-05 17:25] LABS: PTT 28.5 sec (22.9-36.1)
[2023-08-05 20:39] LABS: Lactic Acid 2.4 mmol/L (0.5-2.2)
[2023-08-05] MEDS ORDERED: Ketorolac Tromethamine 30 MG (1 mL) VIAL ONE (20:55)
[2023-08-05] MEDS ORDERED: HYDROcodone/Acetaminophen 5/325 mg Tablet ONE (20:55)
[2023-08-05 22:19] LABS: Bacteria/HPF None Seen HPF (None Seen); Bilirubin Negative (Negative); Blood, Urine Negative (Negative); CAUTI Indications for Culture Pelvic or flank pain; Clarity Clear (Clear); Glucose, Urine (Dipstick) 30 mg/dL (Negative); Ketone, Urine Negative (Negative); Leukocyte 75 Leu/uL (Negative); Nitrite Negative (Negative); Protein, Urine (Dipstick) 10 mg/dL (Neg-Trace); RBC/HPF 0-3 HPF (0-3); Specific Gravity, Urine 1.034 (1.002-1.036); Squamous Epithelial 0-3 HPF (0-3); Urobilinogen Normal mg/dL (Less than 2)
[2023-08-05 22:20] LABS: Urine Culture Reflex Yes Yes
== END 2023-08-05 23:55 | disposition home or self-care (01) ==
LOC: ERS 16:42
DX: S22.41XA Multiple fractures of ribs, right side, initial encounter for closed fracture (principal); S20.221A Contusion of right back wall of thorax, initial encounter; S20.211A Contusion of right front wall of thorax, initial encounter; S60.211A Contusion of right wrist, initial encounter; S60.222A Contusion of left hand, initial encounter; I10 Essential (primary) hypertension; E11.9 Type 2 diabetes mellitus without complications; F17.210 Nicotine dependence, cigarettes, uncomplicated; W10.2XXA Fall (on)(from) incline, initial encounter; Y93.01 Activity, walking, marching and hiking; Z95.0 Presence of cardiac pacemaker
CPT/HCPCS: 36415; 71045; 71260; 80053; 81001; 83605; 85025; 85610; 85730; 87040; 87086; 93005; 94760; 96374; J1885

== ENCOUNTER 2024-11-05 11:45 | Outpatient (CLI) | payer OTHER | END 2024-11-05 11:46 | disposition home or self-care (01) | LOC: PET 11:45 | PROVIDERS: ATTEND Internal Medicine Hematology & Oncology | DX: C01 Malignant neoplasm of base of tongue (principal); C61 Malignant neoplasm of prostate; K11.8 Other diseases of salivary glands; R91.1 Solitary pulmonary nodule | CPT/HCPCS: 78815; A9552 ==

== ENCOUNTER 2024-12-12 22:49 | Emergency (ER) | payer OTHER ==
[~2024-12-12 22:49] MED LIST: Iopamidol-370 76% 500 ML MDV (1 ML CHARGE) ONE
[2024-12-12 23:45] LABS: #Basophils 0.07 10x3/uL (0.0-0.2); #Eosinophils 0.13 10x3/uL (0.0-0.7); #Monocytes 0.66 10x3/uL (0.11-0.59); #Neutrophils 6.76 10x3/uL (1.40-6.50); %Basophils 0.8 % (0.0-1.0); %Eosinophils 1.5 % (0.0-10.0); %Lymphocytes 9.0 % (21.0-51.0); %Monocytes 7.8 % (0.0-10.0); %Neutrophils 80.4 % (42.0-75.0); Hematocrit 30.0 % (42.0-52.0); Hemoglobin 10.0 g/dL (14.0-18.0); Mean Corpuscular Hemoglobin 27.5 pg (27.0-31.0); Mean Corpuscular Volume 82.4 fL (78.0-98.0); Platelet Count 343 10x3/uL (130-400); Red Blood Cell (RBC) Count 3.64 mill/uL (4.70-6.10); White Blood Cell (WBC) Count 8.42 10x3/uL (4.8-10.8)
[2024-12-12 23:58] LABS: INR-International Normal Ratio 1.0; PTT 32.1 sec (22.9-36.1); Prothrombin Time 13.7 sec (12.0-14.7)
[2024-12-13 00:01] LABS: ALT (SGPT) 12 U/L (Less than 45); AST (SGOT) 40 U/L (11-34); Albumin 2.8 g/dL (3.1-4.5); Alkaline Phosphatase 93 U/L (40-110); Anion Gap 17 mmol/L (10-20); BUN (Urea Nitrogen) 28 mg/dL (8.4-25.7); Bilirubin, Total 0.4 mg/dL (0.3-1.2); Calc. Creatinine Clearance 0 mL/min (70-130); Calcium 9.2 mg/dL (7.8-10.44); Carbon Dioxide 25 mmol/L (23-31); Chloride 93 mmol/L (98-107); Globulin 4.8 g/dL (2.4-3.5); Glucose 120 mg/dL (83-110); Magnesium 1.5 mg/dL (1.6-2.6); Potassium 4.0 mmol/L (3.5-5.1); Sodium 131 mmol/L (136-145)
[2024-12-13] MEDS ORDERED: Magnesium 2 GM/50 ML BAG (IN WATER) ONE (00:32)
[2024-12-13] MEDS ORDERED: Acetaminophen 500 MG TAB ONE (00:32)
== END 2024-12-13 03:21 | disposition home or self-care (01) ==
LOC: ERS 22:49 → UNDOADMOB 12-13 01:39 → ERHOLD 12-13 01:39 → ERS 12-13 01:49 → UNDODISOB 12-13 03:13 → ERS 12-13 03:21
DX: E86.0 Dehydration (principal); E83.42 Hypomagnesemia; R55 Syncope and collapse
CPT/HCPCS: 70450; 71275; 72125; 83735; 84484; 85610; 85730; 93005; J3475; Q9967; 80053; 84443; 85025

== ENCOUNTER 2025-01-01 10:53 | Outpatient (CLI) | payer OTHER | END 2025-01-01 10:54 | disposition home or self-care (01) | LOC: RAD 10:53 | PROVIDERS: ATTEND Radiology Radiation Oncology | DX: R13.10 Dysphagia, unspecified (principal); C76.0 Malignant neoplasm of head, face and neck | CPT/HCPCS: 74230 ==

== ENCOUNTER 2025-01-09 09:32 | Day surgery (SDC) | payer OTHER ==
[2025-01-09] MEDS ORDERED: diphenhydrAMINE 25 MG CAP ONE (09:56)
[2025-01-09] MEDS ORDERED: Acetaminophen 500 MG TAB ONE (09:56)
[2025-01-09] MEDS: diphenhydrAMINE 25 MG CAP PO SCH (09:57)
[2025-01-09] MEDS: Acetaminophen 500 MG TAB PO SCH (09:57)
[2025-01-09 13:04] VITALS: BP 145/71; TEMP 98.1
== END 2025-01-09 13:04 | disposition home or self-care (01) ==
LOC: ONC/OP 09:32
PROVIDERS: ATTEND Internal Medicine Hematology & Oncology
DX: D64.9 Anemia, unspecified (principal); D69.6 Thrombocytopenia, unspecified
CPT/HCPCS: 36430; 86850; 86900; 86901; 86920; J1642; P9016

== ENCOUNTER 2025-01-24 10:43 | Outpatient (CLI) | payer OTHER | END 2025-01-24 10:44 | disposition home or self-care (01) | LOC: BICCT 10:43 | PROVIDERS: ATTEND Internal Medicine | DX: R91.1 Solitary pulmonary nodule (principal); J18.9 Pneumonia, unspecified organism | CPT/HCPCS: 71250 ==

== ENCOUNTER 2025-01-29 09:33 | Day surgery (SDC) | payer OTHER ==
[2025-01-29 10:05] VITALS: BP 124/67; TEMP 97.4
[2025-01-29] MEDS: Magnesium Sulfate 4 GM / 100ML WATER Premix IVPB SCH (10:07)
== END 2025-01-29 12:26 | disposition home or self-care (01) ==
LOC: ONC/OP 09:33
PROVIDERS: ATTEND Internal Medicine Hematology & Oncology
DX: E86.0 Dehydration (principal); C61 Malignant neoplasm of prostate; C01 Malignant neoplasm of base of tongue
CPT/HCPCS: 96361; 96365; 96366; J1642; J3475

== ENCOUNTER 2025-02-25 09:40 | Outpatient (CLI) | payer OTHER | END 2025-02-25 09:41 | disposition home or self-care (01) | LOC: PET 09:40 | PROVIDERS: ATTEND Radiology Radiation Oncology | DX: C79.2 Secondary malignant neoplasm of skin (principal); C77.0 Secondary and unspecified malignant neoplasm of lymph nodes of head, face and neck | CPT/HCPCS: 78815; A9552 ==